=== PATIENT | female | born 1980 | race Caucasian/White ===

== ENCOUNTER 2017-05-25 09:08 | Emergency (ER) | payer MEDICAID ==
[~2017-05-25] VITALS: Ht 167.6 cm; Wt 80.0 kg
[~2017-05-25 09:08] MED LIST: FERR27TA PO; PREN1TAB49 PO
[2017-05-25 09:19] VITALS: Ht 167.6 cm; Wt 80.0 kg
[2017-05-25] MEDS ORDERED: SOD CHLORIDE 0.9% 500 ML IV STA (10:41)
[2017-05-25] MEDS ORDERED: ONDANSETRON 4 MG INJ IV STA (10:41)
--- NOTE | 2017-05-25 10:57 | ERD ---
ER Documentation Chief Complaint Chief Complaint ABD PAIN FROM HERNIA, 20 WEEKS HPI 37-year-old female, at 21 weeks per LMP presents to the emergency department complaining of a severe abdominal pain for the last 3 hours. The pain is started approximately 3 days ago and is progressively getting worse, associated with a tender mass in the umbilical area. The patient has a history of umbilical hernia diagnosed 14 years ago . The patient also refers 2 episodes of emesis in the last 12 hours. No vaginal bleeding, no vaginal pain, no vaginal leakage adequate movement. Denies fevers or chills ROS All systems reviewed and are negative except as per history of present illness. Medications Home Meds Reported Medications Ferrous Sulfate (Iron) 1 Tab Tablet, 1 TAB PO DAILY 02/23/12 Vits W-Ca,Fe,Fa(<1MG) () 1 Tab Tablet, 1 TAB PO DAILY 02/23/12 Allergies Allergies: Coded Allergies: No Known Allergy (Verified Allergy, Unknown, 07/27/07) PMhx/Soc History of Surgery: No Anesthesia Reaction: No Hx Neurological Disorder: No Hx Respiratory Disorders: No Hx Cardiac Disorders: No Hx Psychiatric Problems: No Hx Miscellaneous Medical Probl: Yes (umbilical hernia) Hx Alcohol Use: No Hx Substance Use: No Hx Tobacco Use: No Physical Exam Vitals Vital Signs Date Time Temp Pulse Resp B/P Pulse Ox O2 Delivery O2 Flow Rate FiO2 05/25/17 17:25 98.4 85 16 118/65 97 Room Air 05/25/17 14:43 98.0 87 16 122/73 95 Room Air 05/25/17 09:19 98.7 84 16 131/76 96 Physical Exam Patient alert, hydrated, seems in distress due to pain Neck: Full range of motion..~ No meningismus. Resp: Clear to auscultation bilaterally Cardio: Regular rate and rhythm, no murmurs Abd Approx 6 cm supraumbilical asymmetrical protrusion, tender, nonreducible. Uterus gravid. Skin: No petechiae or rashes Back: No midline or flank tenderness 18:03 Exam: Patient alert, awake in no distress. Abd: uterus gravid. Previous asymmetrical protrusion resolved. No tenderness, no skin changes Result Diagram: 05/25/17 1100 05/25/17 1100 Results 24 hrs Laboratory Tests Test 05/25/17 11:00 White Blood Count 13.610^3/ul Red Blood Count 3.9610^6/ul Hemoglobin 12.2g/dl Hematocrit 36.6% Mean Corpuscular Volume 92.4fl Mean Corpuscular Hemoglobin 30.8pg Mean Corpuscular Hemoglobin Concent 33.3g/dl Red Cell Distribution Width 12.6% Platelet Count 36212^3/UL Mean Platelet Volume 8.5fl Neutrophils % 81.6% Lymphocytes % 13.4% Monocytes % 3.5% Eosinophils % 0.1% Basophils % 0.3% Nucleated Red Blood Cells % 0.0/100WBC Neutrophils # 11.110^3/ul Lymphocytes # 1.810^3/ul Monocytes # 0.510^3/ul Eosinophils # 0.010^3/ul Basophils # 0.010^3/ul Nucleated Red Blood Cells # 0.010^3/ul Activated Partial Thromboplast Time 28.1Sec Sodium Level 138mmol/L Potassium Level 4.1mmol/L Chloride Level 105mmol/L Carbon Dioxide Level 22mmol/L Anion Gap 15 Blood Urea Nitrogen 6mg/dl Creatinine 0.42mg/dl Glucose Level 102mg/dl Calcium Level 9.6mg/dl Total Bilirubin 0.1mg/dl Direct Bilirubin 0.00mg/dl Indirect Bilirubin 0.1mg/dl Aspartate Amino Transf (AST/SGOT) 23IU/L Alanine Aminotransferase (ALT/SGPT) 30IU/L Alkaline Phosphatase 54IU/L Total Protein 7.7g/dl Albumin 3.9g/dl Globulin 3.80g/dl Albumin/Globulin Ratio 1.02 Current Medications Medications (Trade) Dose Ordered Sig/Cesia Route PRN Reason Start Time Stop Time Status Last Admin Dose Admin Sodium Chloride (NS) 500 ml @ 500 mls/hr Q1H STAT IV 05/25/17 10:41 05/25/17 11:40 DC 05/25/17 10:54 Ondansetron HCl (Zofran Inj) 4 mg ONCE STAT IV 05/25/17 10:41 05/25/17 10:47 DC 05/25/17 10:54 Morphine Sulfate (morphine) 1 mg ONCE ONCE IV 05/25/17 11:00 05/25/17 11:01 DC 05/25/17 10:55 OB US: Prelim report: live IUP at 23 weeks, 0 days by Ultrasound no previa or abruption 13:10 Soft tissue US: Prelim: umbilical hernia with surrounding fluid. needs surgical consult Patient: PRAVIN PRIEST : 1980 Age: 37 Sex: F MR #: [id number] DOS: 05/25/17 1041 Ordering MD: MILAGROS SIFUENTES MD Location: [facility] Room/Bed: PROCEDURE: US OB. CLINICAL INDICATION: . Abdominal pain. TECHNIQUE: Multiple sonographic images of the uterus were obtained. The images were reviewed on a PACS workstation. COMPARISON: No prior studies are available for comparison. FINDINGS: There is a single live intrauterine gestation. heart rate is 142 beats per minute. Measurements were made in order to determine age. The results are as follows: BPD = 5.63 cm. HC = 20.41 cm. AC = 19.01 cm. FL = 3.95 cm. Estimated weight is 574 +/- 86 grams. LMP growth percentile is 46 %. Maximal vertical pocket of amniotic fluid is 5.5 cm. Menstrual age by ultrasound dates is 23 weeks 0 days. The estimated date of delivery is 09/21/2017. Position is variable and placenta is anterior grade 0. There is no evidence for an abruption or placenta previa. IMPRESSION: 1. Single live intrauterine gestation of 23 weeks 0 days menstrual age by ultrasound dates. 2. The estimated date of delivery is 09/21/2017. RPTAT: QQ .Aristeo Stone MD, MD Date Time Electronically viewed and signed by .Aristeo Stone MD, MD on 05/25/2017 15:26 .R/ CC: MILAGROS SIFUENTES MD Patient: PRAVIN PRIEST : 1980 Age: 37 Sex: F MR #: [id number] DOS: 05/25/17 1041 Ordering MD: MILAGROS SIFUENTES MD Location: [facility] Room/Bed: PROCEDURE: Ultrasound of the anterior abdominal wall. CLINICAL INDICATION: Palpable lesion in the umbilical region. TECHNIQUE: High-resolution sonography of the umbilical region at the site of the palpable lesion was performed in the axial and sagittal planes. COMPARISON: None FINDINGS: There is an umbilical hernia measuring 5.1 x 3.6 cm. The hernia contains a loop of bowel measuring 3.2 by 2.7 cm. There is fluid surrounding the bowel. There is no abnormality at the site of the palpable lesion. IMPRESSION: 1. Umilical hernia containing a loop of bowel with surrounding fluid. 2. Any further management should be based on clinical grounds. RPTAT: QQ .Aristeo Stone MD, MD Date Time Electronically viewed and signed by .Aristeo Stone MD, MD on 05/25/2017 15:38 .R/ CC: MILAGROS SIFUENTES MD Procedures/MDM 37y/o female at 21wk presents with severe abdominal wall pain. Differential includes: placenta previa, abruptio, labor. Clinical examination and physical findings consistent with most likely incarcerated hernia, very tender, I wasn't able to reduce it. The patient was started on IV fluids, Zofran and morphine. Labs requested that showed mild elevated WBC. Obstetric US: SLIUP at 23wk. Soft tissue US: Umbilical hernia containing a loop of bowel with surrounding fluid. A surgical consult was called for incarcerated hernia. At approx 1400h the patient felt the baby moving strong and the pain suddenly resolved, and the violaceous protruding mass disappeared. 13:01 Patient returned form US, refers feeling better, pain is 3/10. 15:44 Waiting for Surgery consult. The patient states that one hour ago, she felt the baby moving really hard and the pain suddenly resolved. 18:22 [facility] at bedside. Case discussed, she will talk to Dr. Carreon. 18:45 No surgical consult available. F/U US showed that the hernia reduced by itself. Case d/w who agrees with disposition. Currently patient is hemodynamically stable, asymptomatic, all her symptoms have resolved, she refers adequate movement. The patient will be discharged home with strict ER precautions and follow-up tomorrow with her OB physician Departure Diagnosis: Primary Impression: Abdominal pain Additional Impressions: Hernia, umbilical Condition: Stable Additional Instructions: Muchas justin por [facility] para foster servicio. Esperamos que en foster visita a la jacinto de emergencia foster problema medico haya sido solucionado y que se sienta mucho mejor. Para estar seguros que foster mejoria sigue en proceso, le pedimos el favor de hacer carlitos abilio de seguimiento medico con foster doctor primario en los proximos 2-4 sarabia. Lleve con usted estos documentos y las medicinas recetadas. Si rudy sintomas empeoran y no puede isaura a foster doctor, por favor regrese a jacinto de emergencia. RODRIGUEZ-MILAGROS NDIAYE MD May 25, 2017 10:57
[2017-05-25] MEDS ORDERED: morphine 2 MG INJ IV ONE (11:00)
[2017-05-25 11:05] LABS: BASOPHILS % 0.3 % (0.0-2.0); EOSINOPHILS % 0.1 % (0.0-7.0); HEMATOCRIT 36.6 % (37.0-47.0); HEMOGLOBIN 12.2 g/dl (12.0-16.0); LYMPHOCYTES # 1.8 10^3/ul (0.8-2.9); LYMPHOCYTES % 13.4 % (15.0-51.0); MEAN CORPUSCULAR HEMOGLOBIN 30.8 pg (29.0-33.0); MEAN CORPUSCULAR HGB CONC 33.3 g/dl (32.0-37.0); MEAN CORPUSCULAR VOLUME 92.4 fl (82.0-101.0); MEAN PLATELET VOLUME 8.5 fl (7.4-10.4); MONOCYTE # 0.5 10^3/ul (0.3-0.9); MONOCYTES % 3.5 % (0.0-11.0); NEUTROPHIL # 11.1 10^3/ul (1.6-7.5); NEUTROPHILS % 81.6 % (39.0-77.0); PLATELET COUNT 365 10^3/UL (140-415); RED BLOOD COUNT 3.96 10^6/ul (4.20-5.40); RED CELL DISTRIBUTION WIDTH 12.6 % (11.5-14.5); WHITE BLOOD COUNT 13.6 10^3/ul (4.8-10.8)
[2017-05-25 11:29] LABS: ALBUMIN 3.9 g/dl (3.3-4.9); ALBUMIN/GLOBULIN RATIO 1.02; BILIRUBIN,INDIRECT 0.1 mg/dl (0-1.1); BILIRUBIN,TOTAL 0.1 mg/dl (0.2-1.3); CALCIUM 9.6 mg/dl (8.4-10.2); CREATININE 0.42 mg/dl (0.44-1.00); POTASSIUM 4.1 mmol/L (3.5-5.1); TOTAL PROTEIN 7.7 g/dl (6.1-8.1)
--- NOTE | 2017-05-25 15:26 | RADRPT ---
PROCEDURE: US OB. CLINICAL INDICATION: . Abdominal pain. TECHNIQUE: Multiple sonographic images of the uterus were obtained. The images were revi ewed on a PACS workstation. COMPARISON: No prior studies are available for comparison. FINDINGS: There is a single live intrauterine gestation. heart rate is 142 beats per minute. Measurements were made in order to determine age. The results are as follows: BPD = 5.63 cm. HC = 20.41 cm. AC = 19.01 cm. FL = 3.95 cm. Estimated weight is 574 +/- 86 grams. LMP growth percentile is 46 %. Maximal vertical pocket of amniotic fluid is 5.5 cm. Menstrual age by ultrasound dates is 23 weeks 0 days. The estimated date of delivery is 09/21/2017. Position is variable and placenta is anterior grade 0. There is no evidence for an abruption or plac enta previa. IMPRESSION: 1. Single live intrauterine gestation of 23 weeks 0 days menstrual age by ultrasound dates. 2. The estimated date of delivery is 09/21/2017. RPTAT: QQ .Aristeo Stone MD, MD Date Time Electronically viewed and signed by .Aristeo Stone MD, on 05/25/2017 15:26 .R/
--- NOTE | 2017-05-25 15:38 | RADRPT ---
PROCEDURE: Ultrasound of the anterior abdominal wall. CLINICAL INDICATION: Palpable lesion in the umbilical region. TECHNIQUE: High-resolution sonography of the umbilical region at the site of the palpable lesion w as performed in the axial and sagittal planes. COMPARISON: None FINDINGS: There is an umbilical hernia measuring 5.1 x 3.6 cm. The hernia contains a loop of bowel measuring 3 .2 by 2.7 cm. There is fluid surrounding the bowel. There is no abnormality at the site of the palpable lesion. IMPRESSION: 1. Umilical hernia containing a loop of bowel with surrounding fluid. 2. Any further management should be based on clinical grounds. RPTAT: QQ .Aristeo Stone MD, MD Date Time Electronically viewed and signed by .Aristeo Stone MD, on 05/25/2017 15:38 .R/
[2017-05-25 17:25] VITALS: BP 118/65; PULSE 85; RESP 16; TEMP 98.4
--- NOTE | 2017-05-25 18:24 | RADRPT ---
PROCEDURE: Ultrasound of the anterior abdominal wall. CLINICAL INDICATION: Palpable lesion in the umbilical region. Post reduction of umbilical hernia. TECHNIQUE: High-resolution sonography of the umbilical region at the site of the palpable lesion w as performed in the axial and sagittal planes. COMPARISON: Prior study done earlier the same day. FINDINGS: Previously noted umbilical hernia is no longer present. A small amount of free fluid is present anteriorly in the abdomen adjacent to the bowel at the site of the previously noted hernia. IMPRESSION: 1. Umbilical hernia no longer present. 2. Small amount of free fluid anteriorly in the abdomen adjacent to the bowel at the site of the pr eviously noted hernia. RPTAT: QQ .Aristeo Stone MD, Date Time Electronically viewed and signed by .Aristeo Stone MD, on 05/25/2017 18:23 .R/
--- NOTE | 2017-05-25 19:28 | CONS ---
Date/Time of Note Date/Time of Note DATE: 05/25/17 TIME: 19:04 Assessment/Plan Assessment/Plan Chief Complaint/Hosp Course 1. Umbilical hernia: with bowel loop that reduced spontaneously without intervention; repeat US showed no bowel loops; she was offered surgery however due to risk of harm, she is currently refusing surgery -eventual hernia repair to be done after she delivers -OB followup 2. Leukocytosis: likely reactive; afebrile without tachycardia -close monitoring for symptoms 3. Abdominal pain: / #1 -as above Thank you. Patient seen and examined in collaboration with Dr. Orion Carreon. Problems: Consultation Date/Type/Reason Admit Date/Time Date of Consultation: May 25, 2017 Type of Consultation: surgical Reason for Consultation ?incarcerated umbilical hernia Referring Provider: MILAGROS SIFUENTES MD Hx of Present Illness Tatiana Andrew is a 37 yo woman who is 21 weeks , who presents to the ED with complaints of severe abdominal pain that began in the morning when she awoke. The pain reportedly began 3 hours prior to coming to the ED. Her pain was also associated with a bulging mass periumbilical, as well as 2 episodes of vomiting. She has had history of similar episodes that also resolved without intervention. Ultrasound was done which showed an umbilical hernia containing a loop of bowel with surrounding fluid. On exam however, she no longer had a bulging mass. Reportedly the baby repositioned and the hernia reduced without intervention. Repeat ultrasound showed umbilical hernia no longer present. She denies abdominal pain, hematemesis, vaginal bleeding, further vomiting or diarrhea. General surgery was asked to evaluate. Constitutional: No chills, No diaphoresis, No febrile Eyes: No discharge, No pain ENT: No congestion, No pain Respiratory: No cough, No pain, No shortness of breath Cardiovascular: No chest pain, No lightheadedness Gastrointestinal: other (as above) Genitourinary: No bleeding, No flank pain Musculoskeletal: No back pain, No restricted range of motion Skin: No bruising, No erythema Neurologic: No confusion, No dizziness Psychological: nl mood/affect Past Medical History Umbilical hernia Past Surgical History no surgical history Family History Significant Family History: no pertinent family hx Social History Alcohol Use: none Drug Use: none Exam/Review of Systems Vital Signs Vitals Vital Signs Date Time Temp Pulse Resp B/P Pulse Ox O2 Delivery O2 Flow Rate FiO2 05/25/17 17:25 98.4 85 16 118/65 97 Room Air Exam Constitutional: alert, oriented Psych: nl mood/affect Head: atraumatic, normocephalic Eyes: nl conjunctiva, nl lids, nl sclera ENMT: mucosa pink and moist, nl nasal mucosa & septum Neck: non-tender, supple Respiratory: clear to auscultation, normal air movement Cardiovascular: nl pulses, regular rate and rhythm Gastrointestinal: non-tender, other (umbilical hernia-reducible; rotund), soft Musculoskeletal: nl extremities to inspection, nl gait and stance Extremities: normal pulses Neurological: nl mental status, nl speech, nl strength Skin: nl turgor, other (no abdominal bruising or discoloration), rash or lesions Results Result Diagram: 05/25/17 1100 05/25/17 1100 Results 24 hrs Laboratory Tests Test 05/25/17 11:00 White Blood Count 13.6 H Red Blood Count 3.96 L Hemoglobin 12.2 Hematocrit 36.6 L Mean Corpuscular Volume 92.4 Mean Corpuscular Hemoglobin 30.8 Mean Corpuscular Hemoglobin Concent 33.3 Red Cell Distribution Width 12.6 Platelet Count 365 Mean Platelet Volume 8.5 Neutrophils % 81.6 H Lymphocytes % 13.4 L Monocytes % 3.5 Eosinophils % 0.1 Basophils % 0.3 Nucleated Red Blood Cells % 0.0 Neutrophils # 11.1 H Lymphocytes # 1.8 Monocytes # 0.5 Eosinophils # 0.0 Basophils # 0.0 Nucleated Red Blood Cells # 0.0 Activated Partial Thromboplast Time 28.1 Sodium Level 138 Potassium Level 4.1 Chloride Level 105 Carbon Dioxide Level 22 Anion Gap 15 Blood Urea Nitrogen 6 L Creatinine 0.42 L Glucose Level 102 Calcium Level 9.6 Total Bilirubin 0.1 L Direct Bilirubin 0.00 Indirect Bilirubin 0.1 Aspartate Amino Transf (AST/SGOT) 23 Alanine Aminotransferase (ALT/SGPT) 30 Alkaline Phosphatase 54 Total Protein 7.7 Albumin 3.9 Globulin 3.80 H Albumin/Globulin Ratio 1.02 EAMON SPICER NP May 25, 2017 19:16
== END 2017-05-25 18:56 | disposition home or self-care (01) ==
LOC: FTE 09:08
DX: O99.612 Diseases of the digestive system complicating pregnancy, second trimester (principal); K42.9 Umbilical hernia without obstruction or gangrene; R10.33 Periumbilical pain; Z3A.23 23 weeks gestation of pregnancy
CPT/HCPCS: 36415; 76536; 76805; 80053; 85025; 85730; 86900; 86901; 96374; 96375; J2270; J2405; J7040; Z7502

== ENCOUNTER 2017-09-20 05:05 | Inpatient (IN) | END 2017-09-22 15:20 | disposition home or self-care (01) | DRG 775 ==